=== PATIENT | female | born 1990 | race American Indian/Alaskan Native ===

== ENCOUNTER 2018-05-15 12:53 | Emergency (ER) | payer SELFPAY ==
[2018-05-15 12:58] VITALS: BP 116/87
[2018-05-15] MEDS ORDERED: TETRACAINE 0.5% ONE (13:42)
[2018-05-15] MEDS ORDERED: FUL-GLO OP ONE ×2 (13:42→13:44)
[2018-05-15] MEDS ORDERED: TETRACAINE 0.5% OU ONE (13:44)
[2018-05-15] MEDS ORDERED: BOOSTRIX IM ONE (14:20)
--- NOTE | 2018-05-15 14:22 | Emergency Department Report ---
ED Eye Problem HPI - General Chief complaint: Eye Problems Stated complaint: LEFT EYE INJURIES Time Seen by Provider: 05/15/18 13:43 Source: patient Mode of arrival: Ambulatory Limitations: No Limitations - History of Present Illness Initial comments: This is a 28-year-old female nontoxic, well nourished in appearance, no acute signs of distress presents to the ED with c/o of left eye pain x1 day. Patient stated her daughter poked her in the eye this morning. Patient deneis any visual changes but stated it hurts to open her eye. PAtient deneis any nausea, vomiting, chest pain, shortness of breathe, fever, chills, headache, back pain. PAtient denies any allergies or PMH. MD chief complaint: eye pain -: This morning Location: left eye Place: home Severity: mild Severity scale (0 -10): 8 If Pain, Quality: aching Consistency: constant Associated Symptoms: none Treatments Prior to Arrival: none - Related Data Patient Tetanus UTD: No Previous Rx's Medication Instructions Recorded Last Taken Type Acetaminophen/Codeine [Tylenol 1 tab PO Q6H PRN #15 tab 05/15/18 Unknown Rx /Codeine # 3 tab] Ciprofloxacin 0.3% (Nf) 2 drops OS TID #1 drops 05/15/18 Unknown Rx [Ciprofloxacin OPTH] Allergies Allergy/AdvReac Type Severity Reaction Status Date / Time No Known Allergies Allergy Unverified 05/15/18 12:57 ED Review of Systems ROS: Stated complaint: LEFT EYE INJURIES Other details as noted in HPI Constitutional: denies: chills, fever Eyes: eye pain. denies: eye discharge, vision change ENT: denies: ear pain, throat pain Respiratory: denies: cough, shortness of breath, wheezing Cardiovascular: denies: chest pain, palpitations Endocrine: no symptoms reported Gastrointestinal: denies: abdominal pain, nausea, diarrhea Genitourinary: denies: urgency, dysuria, discharge Musculoskeletal: denies: back pain, joint swelling, arthralgia Skin: denies: rash, lesions Neurological: denies: headache, weakness, paresthesias Psychiatric: denies: anxiety, depression Hematological/Lymphatic: denies: easy bleeding, easy bruising ED Past Medical Hx - Past Medical History Previous Medical History?: No - Surgical History Past Surgical History?: No - Social History Smoking Status: Never Smoker Substance Use Type: Alcohol, Marijuana - Medications Home Medications: Home Medications Medication Instructions Recorded Confirmed Last Taken Type Acetaminophen/Codeine [Tylenol 1 tab PO Q6H PRN #15 tab 05/15/18 Unknown Rx /Codeine # 3 tab] Ciprofloxacin 0.3% (Nf) 2 drops OS TID #1 drops 05/15/18 Unknown Rx [Ciprofloxacin OPTH] ED Physical Exam - General Limitations: No Limitations General appearance: alert, in no apparent distress - Head Head exam: Present: atraumatic, normocephalic - Eye Eye exam: Present: normal appearance, PERRL, EOMI Pupils: Present: normal accommodation - ENT ENT exam: Present: normal exam, mucous membranes moist - Neck Neck exam: Present: normal inspection, full ROM - Respiratory Respiratory exam: Present: normal lung sounds bilaterally. Absent: respiratory distress - Cardiovascular Cardiovascular Exam: Present: regular rate, normal rhythm. Absent: systolic murmur, diastolic murmur, rubs, gallop - GI/Abdominal GI/Abdominal exam: Present: soft, normal bowel sounds - Extremities Exam Extremities exam: Present: normal inspection - Back Exam Back exam: Present: normal inspection - Neurological Exam Neurological exam: Present: alert, oriented X3, normal gait - Psychiatric Psychiatric exam: Present: normal affect, normal mood - Skin Skin exam: Present: warm, dry, intact, normal color. Absent: rash - Other Other exam information: Under Morales lamp, I used fluorescein and tetracaine to examine cornea for corneal abrasion or foreign body, negative foreign body noted upon exam. There is a corneal abrasion to iris of the left eye. ED Course Vital Signs 05/15/18 12:55 Temperature 98.4 F Pulse Rate 64 Respiratory 18 Rate Blood Pressure 116/87 O2 Sat by Pulse 100 Oximetry - Reevaluation(s) Reevaluation #1: 05/15/18 14:23 Patient is speaking in full sentences with no signs of distress noted. Critical care attestation.: If time is entered above; I have spent that time in minutes in the direct care of this critically ill patient, excluding procedure time. ED Disposition Clinical Impression: Corneal abrasion Qualifiers: Encounter type: initial encounter Laterality: left Qualified Code(s): S05.02XA - Injury of conjunctiva and corneal abrasion without foreign body, left eye, initial encounter Disposition: DC-01 TO HOME OR SELFCARE Is pt being admited?: No Does the pt Need Aspirin: No Condition: Stable Instructions: Corneal Abrasion (ED) Additional Instructions: Follow-up with a network operations technician doctor in 3-5 days or if symptoms worsen and continue return to emergency room as soon as possible. Prescriptions: Acetaminophen/Codeine [Tylenol /Codeine # 3 tab] 1 tab PO Q6H PRN #15 tab PRN Reason: Pain , Severe (7-10) Ciprofloxacin 0.3% (Nf) [Ciprofloxacin OPTH] 2 drops OS TID #1 drops Referrals: PRIMARY CARE, [Primary Care Provider] - 3-5 Days OLIVA JEREZ MD [Staff Physician] - 3-5 Days [facility] [Outside] - 3-5 Days [facility] [Outside] - 3-5 Days Forms: Work/School Release Form(ED)
== END 2018-05-15 15:17 | disposition home or self-care (01) ==
LOC: ED 12:53
DX: S05.02XA Injury of conjunctiva and corneal abrasion without foreign body, left eye, initial encounter (principal); F12.90 Cannabis use, unspecified, uncomplicated; X58.XXXA Exposure to other specified factors, initial encounter; Y93.89 Activity, other specified; Y99.8 Other external cause status; Y92.098 Other place in other non-institutional residence as the place of occurrence of the external cause
CPT/HCPCS: 90471; 90715; 99283